=== PATIENT | male | born 1975 | race Caucasian/White ===

== ENCOUNTER 2020-10-17 16:27 | Emergency (ER) | payer OTHER ==
[2020-10-17 17:44] LABS: HEMOGLOBIN 14.8 gm/dl (14.0-17.5); RED BLOOD COUNT 4.57 M/UL (4.20-5.50); WHITE BLOOD COUNT 10.5 K/UL (4.5-11.0)
[2020-10-17 18:07] LABS: BUN/CREATININE RATIO 13 (0-10)
== END 2020-10-18 11:50 | disposition home or self-care (01) ==
LOC: ER1 16:27
PROVIDERS: Family Medicine
DX: R45.851 Suicidal ideations (principal); F10.10 Alcohol abuse, uncomplicated; Y90.8 Blood alcohol level of 240 mg/100 ml or more; R07.9 Chest pain, unspecified; R11.2 Nausea with vomiting, unspecified; F17.210 Nicotine dependence, cigarettes, uncomplicated
CPT/HCPCS: 36415; 80053; 80307; 81001; 82009; 82140; 82550; 82553; 82803; 83605; 83690; 83735; 83874; 84439; 84443; 84484; 85025; 85610; 93005; 96365; 96366; 96375; 99285; C9113; G0480; J2405; J2550; J3411; J3475; J7030